=== PATIENT | male | born 1975 | race African-American/Black ===

== ENCOUNTER 2024-02-27 07:16 | Emergency (ER) | payer OTHER ==
[~2024-02-27] VITALS: Ht 170.2 cm; Wt 72.0 kg
[2024-02-27 07:23] VITALS: BP 128/87; PULSE 70; RESP 16; TEMP 98.4
[2024-02-27] MEDS ORDERED: METF-1211 PO (07:26)
[2024-02-27] MEDS ORDERED: ATOR10TA PO (07:26)
[2024-02-27] MEDS ORDERED: LOSA-382 PO (07:26)
[2024-02-27 07:46] LABS: GLUCOMETER DEV NAME(LOC) ERT.5; GLUCOSE,POINT OF CARE 107 MG/DL (70-110)
[2024-02-27 09:21] LABS: INFLUENZA A-RTPCR,COMBO NEGATIVE (NEGATIVE); INFLUENZA B-RTPCR,COMBO NEGATIVE (NEGATIVE); RESPIRATORY SYNCYTIAL VRS-PCR NEGATIVE (NEGATIVE); SARS COVID19 RTPCR, COMBO NEGATIVE (NEGATIVE)
[2024-02-27] MEDS: KETOROLAC TROMETHAMINE 30 MG/ML VIAL IVP ONE (10:15)
[2024-02-27] MEDS: DEXAMETHASONE SOD PHOS 4 MG/ML 5 ML VIAL IVP ONE (10:15)
[2024-02-27] MEDS: CefTRIAXone 1 GM/DEXTROSE 50 ML IV ONE (10:15)
[2024-02-27] MEDS ORDERED: AMOX1TAB16 PO (11:06)
[2024-02-27] MEDS ORDERED: IBUP-1492 PO (11:06)
== END 2024-02-27 11:47 | disposition home or self-care (01) ==
LOC: EMS 07:18
DX: J02.0 Streptococcal pharyngitis (principal); E11.9 Type 2 diabetes mellitus without complications; E78.00 Pure hypercholesterolemia, unspecified; I10 Essential (primary) hypertension; Z98.890 Other specified postprocedural states; Z20.822 Contact with and (suspected) exposure to COVID-19
CPT/HCPCS: 99284; 96365; 0241U; 96375; 82962; 87430; J0696; J1100; J1885

== ENCOUNTER 2024-12-22 17:25 | Emergency (ER) | payer OTHER ==
[~2024-12-22] VITALS: Ht 167.6 cm; Wt 77.3 kg
[~2024-12-22 17:25] MED LIST: AMOX-457 PO; ATOR10TA PO; IBUP-1492 PO; LOSA-382 PO; METF-1211 PO
[2024-12-22 17:33] VITALS: BP 139/73; PULSE 103; RESP 18; TEMP 102.2; O2SAT 98
[2024-12-22] MEDS ORDERED: ACETAMINOPHEN 500 MG TABLET PO ONE (18:00)
[2024-12-22 18:14] LABS: COVID AG,FIA SOURCE NASAL SWAB
[2024-12-22 18:42] LABS: INFLUENZA TYPE B NEGATIVE FOR TYPE B (NEGATIVE); SARS-COV2 (COVID) ANTIGEN,FIA Negative (Negative)
[2024-12-22 18:44] LABS: INFLUENZA TYPE A POSITIVE FOR TYPE A (NEGATIVE)
[2024-12-22] MEDS ORDERED: IBUP-1554 PO (19:22)
[2024-12-22] MEDS ORDERED: ACET-2080 PO (19:22)
[2024-12-22] MEDS ORDERED: GUAIFDM PO (19:22)
[2024-12-22] MEDS ORDERED: BENZ-227 PO (19:22)
== END 2024-12-22 19:36 | disposition home or self-care (01) ==
LOC: EMS 17:25
DX: J20.9 Acute bronchitis, unspecified (principal); J10.1 Influenza due to other identified influenza virus with other respiratory manifestations; E11.9 Type 2 diabetes mellitus without complications; E78.00 Pure hypercholesterolemia, unspecified; I10 Essential (primary) hypertension; Z79.899 Other long term (current) drug therapy; Z20.822 Contact with and (suspected) exposure to COVID-19
CPT/HCPCS: 82962; 87804; 99283

== ENCOUNTER 2025-07-03 12:48 | Emergency (ER) | payer MEDICAID, OTHER ==
[~2025-07-03] VITALS: Ht 175.3 cm; Wt 72.0 kg
[~2025-07-03 12:48] MED LIST changes: +ACET-2080 PO; -AMOX-457 PO; +BENZ-227 PO; +GUAIFDM PO; -IBUP-1492 PO; +IBUP-1554 PO
[2025-07-03 12:58] VITALS: TEMP 98.5
[2025-07-03 13:24] LABS: PLATELET COUNT (AUTO) 270 K/uL (150-450); RED BLOOD CELL COUNT(AUTO) 5.02 MIL/uL (4.50-5.90); RED CELL DISTRIBUTION WIDTH 14.5 % (11.5-14.5); WHITE BLOOD COUNT (AUTO) 3.4 K/uL (4.5-11.0)
[2025-07-03 13:31] LABS: CALCIUM, TOTAL 8.6 mg/dL (8.8-10.5); CREATININE 1.22 mg/dL (0.60-1.30); GLOMERULAR FILTR. RATE CALC > 60 mL/min (>60); GLUCOSE,RANDOM 187 mg/dL (70-110); SODIUM SERUM 138 mmol/L (136-145); UREA NITROGEN, BLOOD 13 mg/dL (7-18)
[2025-07-03] MEDS ORDERED: CYCL-448 PO (14:04)
[2025-07-03 14:39] VITALS: BP 165/89; PULSE 84; RESP 16; O2SAT 98
== END 2025-07-03 14:40 | disposition home or self-care (01) ==
LOC: EMS 12:48
DX: S16.1XXA Strain of muscle, fascia and tendon at neck level, initial encounter (principal); E11.9 Type 2 diabetes mellitus without complications; E78.00 Pure hypercholesterolemia, unspecified; I10 Essential (primary) hypertension; Z98.890 Other specified postprocedural states; Z79.899 Other long term (current) drug therapy; V49.9XXA Car occupant (driver) (passenger) injured in unspecified traffic accident, initial encounter; Y93.89 Activity, other specified; Y92.89 Other specified places as the place of occurrence of the external cause; Y99.8 Other external cause status
CPT/HCPCS: 72125; 80048; 85025; 99284